=== PATIENT | male | born 1950 | race Caucasian/White ===

== ENCOUNTER → 2017-10-04 | Outpatient (CLI) | payer BC, OTHER ==
[~2017-10-04] MED LIST: ASPIR 8181 MG PO; GLUCOPHAGE1000 MG PO; HUMALOG KW200 UNIT/1 SUBQ; LISINOPRIL-HCT1 EAC2 PO; METFORMIN HCL500 MG PO; TRESIBA FL100 UNIT/1 SUBQ; TRULICITY0.75 MG/0. SUBQ; ZOCOR40 MG PO
--- NOTE | ~2017-10-04 | EKG ---
[address] [address] ELECTROCARDIOGRAM REPORT Name: ALFONZO BULLOCK Room #: REG HAI Leon#: [id number] Admission: 10/04/17 Attend Phys: Caryl Chaparro Discharge: Date of : 54 Report #: [id number] THIS REPORT FOR: //name// [facility] Test Date: 2017-10-04 Test Time: 08:33:09 Pat Name: ALFONZO BULLOCK Department: Room: Gender: M [employer]: ROMELIA CONTRERAS : 1950 Requested By: Josue Nance Order Number: [id number] MD: Measurements Intervals [place] Rate: 88 P: 69 SC: 157 QRS: 30 QRSD: 82 T: 28 QT: 380 QTc: 460 Interpretive Statements Sinus rhythm Ventricular premature complex Compared to ECG 07/06/2003 17:14:18 Ventricular premature complex(es) now present Myocardial infarct finding no longer present [email or web address] By: 0833 0833 Epiphany EpiphanyMD /EPI
--- NOTE | ~2017-10-04 | 2DMMODE ---
[facility] [address] [place] [address] 2 D/M-MODE ECHOCARDIOGRAM Name: KOBE,ALFONZO [facility] [id number] Admission: 10/04/17 Attend Phys: Caryl Chaudhari Discharge: Date of : 54 Date of Service: 10/04/17 1231 Report #: [id number] THIS REPORT FOR: //name// APPROVED REPORT Study performed: 10/04/2017 11:09:11 EXAM: Comprehensive 2D, Doppler, and color-flow Echocardiogram Patient Location: Out-Patient Status: routine BSA: 2.07 HR: 89 bpm BP: 153/103 mmHg Rhythm: NSR Other Information Study Quality: Adequate Indications Pre-Op Hx: HTN 2D Dimensions RVDd: 36.41 mm LVEF(%): 54.43 (>50%) IVSd: 13.22 (7-11mm) LVOT Diam: 20.16 (18-24mm) LVDd: 39.73 mm PWd: 14.10 (7-11mm) Ascending Ao: 35.40 (22-36mm) LVDs: 28.70 (25-40mm) Aortic Root: 32.72 mm IVC: 21.00 mm TAPSE: 1.80 (<1.7) Haynes's LVEF: 54.43 % Volumes Left Atrial Volume (Systole) Single Plane 4CH: 54.02 mL Single Plane 2CH: 38.28 mL LA ESV Index: 23.00 mL/m2 Aortic Valve AoV Peak Jorge.: 1.22 m/s AO Peak Gr.: 5.97 mmHg LVOT Max P.11 mmHg LVOT Max V: 0.73 m/s BRAD Vmax: 1.90 cm2 Mitral Valve [facility] [employer] [address] [place] [address] 2 D/M-MODE ECHOCARDIOGRAM Name: ALFONZO BULLOCK Room #: [facility] Toussaint.#: [id number] Admission: 10/04/17 Attend Phys: Caryl Chaudhari Discharge: Date of : 54 Date of Service: 10/04/17 1231 Report #: [id number] E/A Ratio: 0.7 MV Decel. Time: 201.63 ms MV E Max Jorge.: 0.60 m/s MV A Jorge.: 0.89 m/s MV PHT: 58.47 ms IVRT: 143.02 ms Pulmonary Valve PV Peak Jorge.: 0.77 m/s PV Peak Gr.: 2.40 mmHg Pulmonary Vein P Vein S: 0.36 m/s P Vein A: 0.24 m/s P Vein D: 0.30 m/s P Vein A Dur.: 101.5 msec P Vein S/D Ratio: 1.20 Tricuspid Valve RAP Estimate: 5.00 mmHg Left Ventricle The left ventricle is normal size. There is global hypokinesis of the left ventricle. Mild concentric left ventricular hypertrophy. Left ventricular systolic function is mildly decreased. LVEF is 45%. Grade I - abnormal relaxation pattern. Right Ventricle The right ventricle is normal size. The right ventricular systolic function is normal. Atria The left atrium size is normal. The right atrium size is normal. Aortic Valve The Aortic valve is sclerotic. Trace aortic regurgitation. There is no aortic valvular stenosis. Mitral Valve Mitral valve leaflets are mildly thickened. Trace mitral regurgitation. No evidence of mitral valve stenosis. Tricuspid Valve The tricuspid valve is normal in structure. There is no tricuspid valve regurgitation noted. Unable to assess PA pressure. Pulmonic Valve The pulmonary valve is normal in structure. There is no pulmonic [address] [address] 2 D/M-MODE ECHOCARDIOGRAM Name: SANDEE BULLOCKERN Room #: WILFREDO FIGUEROA AllysonArthurChaparrita#: [id number] Admission: 10/04/17 Attend Phys: Caryl Chaudhari Discharge: Date of : 54 Date of Service: 10/04/17 1231 Report #: [id number] valvular regurgitation. Great Vessels The aortic root is normal in size. The ascending aorta is normal in size. IVC is normal in size and collapses >50% with inspiration. Pericardium There is no pericardial effusion. <Conclusion> The left ventricle is normal size. Mild concentric left ventricular hypertrophy. There is global hypokinesis of the left ventricle. LVEF is 45%. Grade I - abnormal relaxation pattern. The Aortic valve is sclerotic. There is no aortic valvular stenosis. Trace aortic regurgitation. Trace mitral regurgitation. No evidence of mitral valve stenosis. There is no pericardial effusion. <ELECTRONICALLY SIGNED> By: Joselo Deras MD, FACC 10/04/17 1231 1231 1231 Joselo Deras MD, FACC /INF
== END ==
LOC: ULTRA 05:41
DX: Z01.818 Encounter for other preprocedural examination (principal); I25.810 Atherosclerosis of coronary artery bypass graft(s) without angina pectoris; I51.7 Cardiomegaly; G45.9 Transient cerebral ischemic attack, unspecified; I70.90 Unspecified atherosclerosis; I10 Essential (primary) hypertension; I25.10 Atherosclerotic heart disease of native coronary artery without angina pectoris

== ENCOUNTER 2017-10-11 05:29 | Inpatient (IN) | payer BC, OTHER ==
[2017-10-04 08:39] LABS: ABSOLUTE NEUTROPHILS 4.5 thou/uL (1.4-8.2); BASOPHILS 0.8 % (0.0-2.0); EOSINOPHILS 2.4 % (0.0-3.0); HEMATOCRIT 43.5 % (42.0-52.0); HEMOGLOBIN 14.8 gm/dL (14.0-18.0); LYMPHOCYTES 28.9 % (24.0-44.0); MCH 29.8 pg (26.0-34.0); MCHC 34.1 g/dL (28.0-37.0); MCV 87.5 fL (80.0-100.0); MONOCYTES 9.3 % (1.0-8.0); PLATELET COUNT 222 thou/uL (150-400); POLYS 58.6 % (36.0-66.0); RBC 4.98 mil/uL (4.50-6.00); RDW 12.8 % (10.5-14.5); URINE BILIRUBIN NEGATIVE (Negative); URINE BLOOD NEGATIVE (Negative); URINE CLARITY CLEAR; URINE COLOR YELLOW; URINE GLUCOSE-RANDOM* NEGATIVE (Negative); URINE KETONES NEGATIVE (Negative); URINE LEUKOCYTES-REFLEX NEGATIVE (Negative); URINE NITRITE-REFLEX NEGATIVE (Negative); URINE PROTEIN (DIPSTICK) NEGATIVE (Negative); URINE UROBILINOGEN 0.2 E.U./dl (0.2-1.0); WBC 7.6 thou/uL (4.0-11.0)
[2017-10-04 08:53] LABS: APTT 27.1 Seconds (24.5-32.8); PROTIME 10.5 Seconds (9.3-11.4)
[2017-10-04 08:56] LABS: ALBUMIN 4.1 g/dL (3.4-5.0); CALCIUM 9.3 mg/dL (8.5-10.1); CREATININE 1.4 mg/dL (0.7-1.3); POTASSIUM 3.6 mmol/L (3.5-5.1); TOTAL BILIRUBIN 0.8 mg/dL (<0.1-1.0); TOTAL PROTEIN 6.7 g/dL (6.4-8.2)
[2017-10-04 14:15] LABS: GLYCOHEMOGLOBIN (HGB A1C) 7.8 % (4.8-5.6)
[2017-10-11] VITALS (23 sets, daily range): BP systolic 92–165; BP diastolic 61–97
[~2017-10-11] VITALS: Ht 175.3 cm; Wt 97.0 kg
--- NOTE | ~2017-10-11 | HC ---
[facility] [place] [address] CONSULTATION Name: ALFONZO BULLOCK Room #: 236-P ADM IN M.R.#: [id number] Admission: 10/11/17 Attend Phys: Josue Nance MD Discharge: Date of : 54 Report #: [id number] THIS REPORT FOR: //name// CC: Manolo Nance DATE OF SERVICE: 10/12/2017 REQUESTING PHYSICIAN: Dr. Josue Nance CHIEF COMPLAINT: Status post CABG. HISTORY OF PRESENT ILLNESS: The patient is a 67-year-old patient known to myself after being evaluated for abnormal stress testing. He had numerous cardiovascular risk factors and a pharmacologic stress test demonstrated anterior and inferior defects and he was found to have multivessel coronary artery disease. He underwent a successful 4-vessel CABG yesterday here at [facility]. This morning he is in sinus rhythm. He was mildly hypertensive and is on a Cardene drip with systolic pressures in the 130s. He is alert, oriented, answering questions appropriately and taking a clear liquid diet. PAST MEDICAL HISTORY: Four-vessel CABG yesterday, MARISCAL to LAD, saphenous vein graft to PDA, saphenous vein graft to OM1 and OM2. Preoperative ejection fraction in the 40-45% range based on echocardiographic testing. SOCIAL HISTORY: He is a nonsmoker. FAMILY HISTORY: Positive for high blood pressure. MEDICATIONS: He is on metoprolol 25 mg p.o. b.i.d., amiodarone 400 mg p.o. b.i.d., albuterol, Atrovent, cefazolin, Cardene, famotidine and morphine p.r.n. REVIEW OF SYSTEMS: GASTROINTESTINAL: No abdominal pain or nausea. NEUROLOGIC: Denies slurred speech, numbness or weakness. HEMATOLOGIC: No anemia or bleeding disorders. ENDOCRINE: Positive hyperlipidemia. No diabetes. SKIN: No rash. GENERAL: No fevers or chills. PHYSICAL EXAMINATION:' VITAL SIGNS: Blood pressure 130/70, temperature 36.8, sinus rhythm, 90-[address] [address] CONSULTATION Name: KOBEALFONZO Room #: 236-P [facility] IN M.R.#: [id number] Admission: 10/11/17 Attend Phys: Josue Nance MD Discharge: Date of : 54 Report #: [id number] beats per minute, O2 sat on nasal cannula is 95%. GENERAL: This is a pleasant, adult male who is alert, oriented and in no apparent distress. HEENT: Eyes, EOMs are intact. No facial asymmetry. NECK: Supple. No jugular venous distention. CARDIOVASCULAR: Regular. I cannot hear a murmur or S3. LUNGS: Clear to auscultation. ABDOMEN: Nontender. EXTREMITIES: He has a clean, dry dressing on his left lower extremity. Distal extremities are warm. NEUROLOGIC: There are no focal deficits. IMAGING: Telemetry shows a sinus rhythm. LABORATORY DATA: Hemoglobin 11.0, white blood cell count is 17.4, platelet count 153,000. Chest x-ray this morning shows a right-sided pneumothorax. ASSESSMENT AND PLAN: 1. Coronary artery disease, status post CABG. He is postoperative day #1 and hemodynamically stable and his pain is well controlled and he is mildly hypertensive, but this is well controlled with Cardene via IV. 2. Right-sided pneumothorax. It was noted yesterday and is persistent today. 3. Hypertension, stable. 4. Hyperlipidemia. We will continue with atorvastatin. 5. Ischemic cardiomyopathy, mild chronic LV systolic dysfunction. We will need to monitor his I's and O's closely in the ICU and in telemetry. By: 0828 0858 Joselo Deras MD, FACC /nt
--- NOTE | ~2017-10-11 | EKG ---
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1950 Requested By: Caryl Chaparro Order Number: [id number] MD: Rahul Tejeda Measurements Intervals [place] Rate: 106 P: 60 OR: 138 QRS: 67 QRSD: 92 T: -6 QT: 359 QTc: 477 Interpretive Statements Sinus tachycardia Nonspecific ST and T wave abnormality Borderline prolonged QT interval Compared to ECG 10/04/2017 08:33:09 Ventricular premature complex(es) no longer present Electronically Signed On 10-11-2017 17:51:05 CDT by Rahul Tejeda [email or web address] <ELECTRONICALLY SIGNED> By: Rahul Tejeda MD, [facility] 10/11/17 1751 1543 1543 Rahul Tejeda MD, [facility] /EPI
--- NOTE | ~2017-10-11 | O ---
[facility] [place] [address] OPERATIVE REPORT Name: ALFONZO BULLOCK Room #: 236-P ADM IN M.R.#: [id number] Admission: 10/11/17 Attend Phys: Josue Nance MD Discharge: Date of : 54 Report #: [id number] THIS REPORT FOR: //name// CC: Manolo Nance DATE OF SERVICE: 10/11/2017 PREOPERATIVE DIAGNOSES: 1. Coronary artery disease. 2. Exertional dyspnea, diabetes mellitus, insulin-dependent, moderate cardiomyopathy, ejection fraction 40%. FINAL DIAGNOSES: 1. Coronary artery disease. 2. Exertional dyspnea, diabetes mellitus, insulin-dependent, moderate cardiomyopathy, ejection fraction 40%. OPERATIVE PROCEDURE PERFORMED: Coronary artery bypass grafting x 4 with left internal mammary artery to the LAD, saphenous vein graft to PDA, saphenous vein graft sequence to OM1 and OM2. SURGEON: Josue Nance MD. SWITCHBOARD OPERATOR RECEPTIONIST: MICHAEL Castro and MICHAEL Bonner. ANESTHESIA: General. OPERATIVE INDICATIONS: The patient is a 67-year-old insulin-dependent diabetic male who has presented with symptoms of exertional dyspnea and easy fatigability. He has undergone evaluation including left heart catheterization demonstrating evidence of severe multivessel coronary artery disease. He is admitted at this time and brought to the operating room for coronary artery bypass grafting. OPERATIVE SUMMARY: The patient was brought to the operating room, placed on the OR table in supine position. After anesthesia was induced via the general endotracheal route and monitoring lines have been positioned, the patient was prepped and draped in a sterile fashion with chlorhexidine. I performed a median sternotomy incision and left internal mammary artery was harvested in standard fashion. Concomitantly, saphenous vein was harvested from left lower extremity using endoscopic techniques. I then opened the pericardium and systemically anticoagulated the patient with heparin. Cannulae were placed in ascending aorta and the right atrium. An antegrade cardioplegic cannula was positioned. Cardiopulmonary bypass was begun and then, a retrograde cardioplegic cannula was positioned. Under low flow conditions, the [facility] [address] [place] [address] OPERATIVE REPORT Name: SANDEE BULLOCKERN Room #: 236-P [facility] IN M.R.#: [id number] Admission: 10/11/17 Attend Phys: Josue Nance MD Discharge: Date of : 54 Report #: [id number] crossclamp was placed and the heart was arrested with approximately 1 liter of cold antegrade cardioplegia, followed by 500 mL of cold retrograde cardioplegia. This was augmented with topical ice slush. Diastolic arrest was achieved and maintained throughout this operation with intermittent doses of cold antegrade and retrograde cardioplegia as well as cardioplegia given down grafts and topical ice slush. We first opened up second obtuse marginal vessel. It was about a 1.9 mm vessel, minimal calcification. At this point, distal anastomosis was carried out in end-to-side fashion with 7-0 Prolene. We then constructed another distal anastomosis this time to the first obtuse marginal. This was done in a [id number] fashion after an arteriotomy was made. This anastomosis was also performed with 7-0 Prolene. The saphenous vein graft segment was brought around to the ascending aorta and measured and cut to the appropriate length and then proximal fashion with 6-0 Prolene after a 4.8 punch aortotomy was created. Next, we opened the posterior descending coronary artery. This was the more modest-sized vessel 1.7 mm in size and it had some calcification present. The distal anastomosis was carried out in end-to-side fashion with 7-0 Prolene utilizing reverse saphenous vein graft and the proximal fashion ascending aorta with 6-0 Prolene after a 4.8 punch aortotomy was created. Lastly, the WINNIE was brought brought onto the field. The WINNIE was cut to the appropriate length. It was of good size and had excellent flow. The LAD was a terrible target. We were unable to find a soft spot on this artery for grafting. We did manage to find a small area in the mid aspect of the vessel. We opened it and fashioned the anastomosis utilizing a MARISCAL to the LAD with 7-0 Prolene. After completion, a couple of reinforcement sutures were placed. The pedicle was tacked to the epicardium with 6-0 Prolene and some BioGlue was used also to ensure hemostasis. We then gave warm cardioplegia both retrograde and antegrade. We de-aired the ascending aorta and the vein grafts with a 27 gauge needle and under low flow conditions, the aorta crossclamp was released to begin the period of reperfusion. The patient was rewarmed to 37 degree centigrade and 3 successive doses of calcium and a single dose of magnesium were given every 3-5 minute intervals. After a suitable period of reperfusion, the lungs were reinflated. The patient was weaned from cardiopulmonary bypass on a low dose Dobutrex infusion. Protamine was given to reverse the heparin, decannulation was effected. Once satisfactory hemostasis was achieved, we placed two 32-[place] chest tubes in the anterior mediastinum and a 24 Mayank drain in left pleural space. They were all brought out through separate stab incisions. The sternum was closed with #7 wire. The fascia, subcutaneous and skin were closed in multiple layers with absorbable suture. The procedure was completed. The patient was taken to the ICU in stable condition. By: 1452 1524 /nt
--- NOTE | ~2017-10-11 | EKG ---
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
--- NOTE | ~2017-10-11 | P ---
[facility] [place] [address] PROCEDURE REPORT Name: ALFONZO BULLOCK Room #: 236-P [facility] IN M.R.#: [id number] Admission: 10/11/17 Attend Phys: Josue Nance MD Discharge: Date of : 54 Report #: [id number] THIS REPORT FOR: //name// CC: Manolo Nance DATE OF SERVICE: 10/12/2017 PROCEDURE: Right chest tube placement. INDICATION: Pneumothorax and respiratory failure. PROCEDURE NOTATION: I was called emergently by Thoracic Surgery Service to come evaluate the patient, place right chest tube. There is no other service available to perform procedure. The patient had a right pneumothorax apparently noted overnight with worsening hypoxemia today, postoperative from coronary bypass grafting. The patient gave verbal consent, somewhat somnolent. Right side was cleansed with 2% chlorhexidine gluconate. Optimal site was determined prior to cleansing. Once complete, using maximal barrier method including head gown, mask, gloves and sterile towels to create a sterile field, the patient then received 8 mL of 1% lidocaine with epinephrine for topical anesthesia and hemostasis controlled at the site of incision. Additional 15 mL of 1% lidocaine were infused along planned pleural puncture site and tunnel tract for chest tube. The patient had received conscious sedation during the procedure. A total of 2 mg of lorazepam, 6 mg of Ativan were titrated during the procedure to provide adequate sedation and analgesia. Once complete, the incision was made about 4 cm below the planned pleural puncture site. Using the curved Amy clamps, a blunt dissection was performed to tunnel about 4 cm to the planned pleural puncture site. Once complete, the large curved Kellys were then used to puncture in the anterior axillary line, roughly the fourth interspace above the rib. Pleural air was noted. Finger was then inserted in the pleural space and palpated the lung, which was freely moving away from the chest wall. A 28-[place] chest tube was then inserted, aiming posteriorly and superiorly without difficulty. Air and serosanguineous fluid was then drained, hooked at the . This was sutured in place using 0 silk and modified pursestring technique. This was then dressed. The patient tolerated well. No noted complications. Saturations initially improved to 94% with this maneuver and then addition of BiPAP. It was then connected to 20 cm of suction. Chest x-ray pending at the time of dictation. By: 1022 1147 Navdeep Morales MD /estrella
[2017-10-11 13:13] LABS: HEMATOCRIT 26.6 % (42.0-52.0); MCH 29.6 pg (26.0-34.0); MCHC 33.7 g/dL (28.0-37.0); MCV 87.9 fL (80.0-100.0); RBC 3.02 mil/uL (4.50-6.00); WBC 12.5 thou/uL (4.0-11.0)
[2017-10-11 13:16] LABS: HEMOGLOBIN 8.9 gm/dL (14.0-18.0)
[2017-10-11 13:39] LABS: FIBRINOGEN 137.6 mg/dL (210-360); INR 1.5
[2017-10-11 13:57] LABS: POC BE 2 mmol/L (-2.0 to +3.0); POC CA IONIZED 4.4 mg/dL (4.5-5.3); POC GLUCOSE 125 mg/dL (70-99); POC HCO3 27.5 mmol/L (22.0-26.0); POC HEMOGLOBIN 11.6 g/dL (14.0-18.0); POC SODIUM 139 mmol/L (136-145); POC pCO2 47.8 mmHg (35.0-45.0); POC pH 7.369 (7.360-7.450)
[2017-10-11 13:57] LABS: POC BE 5 mmol/L (-2.0 to +3.0); POC GLUCOSE 167 mg/dL (70-99); POC HCO3 28.8 mmol/L (22.0-26.0); POC HEMOGLOBIN 8.8 g/dL (14.0-18.0); POC POTASSIUM 5.4 mmol/L (3.5-5.1); POC SODIUM 134 mmol/L (136-145); POC pCO2 42.1 mmHg (35.0-45.0); POC pH 7.443 (7.360-7.450)
[2017-10-11 13:57] LABS: POC BE 5 mmol/L (-2.0 to +3.0); POC CA IONIZED 4.1 mg/dL (4.5-5.3); POC GLUCOSE 149 mg/dL (70-99); POC HCO3 28.5 mmol/L (22.0-26.0); POC HEMOGLOBIN 9.5 g/dL (14.0-18.0); POC POTASSIUM 4.7 mmol/L (3.5-5.1); POC SODIUM 137 mmol/L (136-145); POC pCO2 38.8 mmHg (35.0-45.0); POC pH 7.474 (7.360-7.450)
[2017-10-11 13:57] LABS: POC BE 7 mmol/L (-2.0 to +3.0); POC CA IONIZED 3.8 mg/dL (4.5-5.3); POC GLUCOSE 127 mg/dL (70-99); POC HCO3 30.4 mmol/L (22.0-26.0); POC HEMOGLOBIN 9.2 g/dL (14.0-18.0); POC POTASSIUM 4.7 mmol/L (3.5-5.1); POC SODIUM 137 mmol/L (136-145); POC pCO2 42.2 mmHg (35.0-45.0); POC pH 7.466 (7.360-7.450)
[2017-10-11 13:57] LABS: POC BE 2 mmol/L (-2.0 to +3.0); POC CA IONIZED 3.9 mg/dL (4.5-5.3); POC GLUCOSE 124 mg/dL (70-99); POC HCO3 26.1 mmol/L (22.0-26.0); POC HEMOGLOBIN 9.2 g/dL (14.0-18.0); POC POTASSIUM 4.6 mmol/L (3.5-5.1); POC SODIUM 137 mmol/L (136-145); POC pCO2 40.8 mmHg (35.0-45.0); POC pH 7.414 (7.360-7.450)
[2017-10-11 13:57] LABS: POC BE 2 mmol/L (-2.0 to +3.0); POC CA IONIZED 4.3 mg/dL (4.5-5.3); POC GLUCOSE 126 mg/dL (70-99); POC HCO3 25.5 mmol/L (22.0-26.0); POC HEMOGLOBIN 12.9 g/dL (14.0-18.0); POC POTASSIUM 3.6 mmol/L (3.5-5.1); POC SODIUM 138 mmol/L (136-145); POC pCO2 34.6 mmHg (35.0-45.0); POC pH 7.475 (7.360-7.450)
[2017-10-11 13:57] LABS: POC BE 5 mmol/L (-2.0 to +3.0); POC CA IONIZED 4.1 mg/dL (4.5-5.3); POC GLUCOSE 191 mg/dL (70-99); POC HCO3 29.5 mmol/L (22.0-26.0); POC HEMOGLOBIN 8.8 g/dL (14.0-18.0); POC POTASSIUM 5.5 mmol/L (3.5-5.1); POC SODIUM 135 mmol/L (136-145); POC pCO2 47.6 mmHg (35.0-45.0)
[2017-10-11 13:58] LABS: POC BE 5 mmol/L (-2.0 to +3.0); POC CA IONIZED 6.8 mg/dL (4.5-5.3); POC GLUCOSE 174 mg/dL (70-99); POC HCO3 30.2 mmol/L (22.0-26.0); POC HEMOGLOBIN 8.8 g/dL (14.0-18.0); POC POTASSIUM 5.3 mmol/L (3.5-5.1); POC SODIUM 134 mmol/L (136-145); POC pCO2 54.2 mmHg (35.0-45.0); POC pH 7.353 (7.360-7.450)
[2017-10-11 14:03] LABS: POC BE 0 mmol/L (-2.0 to +3.0); POC CA IONIZED 6.1 mg/dL (4.5-5.3); POC GLUCOSE 140 mg/dL (70-99); POC HCO3 24.7 mmol/L (22.0-26.0); POC HEMOGLOBIN 10.2 g/dL (14.0-18.0); POC POTASSIUM 4.3 mmol/L (3.5-5.1); POC SODIUM 138 mmol/L (136-145); POC pH 7.378 (7.360-7.450)
[2017-10-11 14:03] LABS: POC BE 1 mmol/L (-2.0 to +3.0); POC CA IONIZED 7.3 mg/dL (4.5-5.3); POC GLUCOSE 158 mg/dL (70-99); POC HCO3 26.2 mmol/L (22.0-26.0); POC HEMOGLOBIN 8.5 g/dL (14.0-18.0); POC POTASSIUM 4.5 mmol/L (3.5-5.1); POC SODIUM 136 mmol/L (136-145); POC pCO2 46.2 mmHg (35.0-45.0); POC pH 7.362 (7.360-7.450)
[2017-10-11 15:33] LABS: BE(vivo) -3.4 mmol/L (-2 to +3); HCO3 21.2 mmol/L (22.0-26.0); PCO2 36.6 mmHg (35.0-45.0); sO2 88.7 % (92.0-98.0)
[2017-10-11 15:35] LABS: PO2 55.7 mmHg (80.0-100.0)
[2017-10-11 16:41] LABS: HEMATOCRIT 37.8 % (42.0-52.0); MCH 29.7 pg (26.0-34.0); MCHC 33.9 g/dL (28.0-37.0); MCV 87.8 fL (80.0-100.0); RBC 4.3 mil/uL (4.50-6.00); RDW 13.5 % (10.5-14.5); WBC 23.1 thou/uL (4.0-11.0)
[2017-10-11 16:42] LABS: HEMOGLOBIN 12.8 gm/dL (14.0-18.0)
[2017-10-11 16:59] LABS: CREATININE 1.8 mg/dL (0.7-1.3); POTASSIUM 4.1 mmol/L (3.5-5.1)
[2017-10-11 17:01] LABS: APTT 25.9 Seconds (24.5-32.8); INR 1.1; PROTIME 11.2 Seconds (9.3-11.4)
[2017-10-11 19:34] LABS: BE(vivo) -4.3 mmol/L (-2 to +3); HCO3 20.5 mmol/L (22.0-26.0); PCO2 37.1 mmHg (35.0-45.0); PO2 60.8 mmHg (80.0-100.0); pH 7.361 (7.360-7.450); sO2 90.6 % (92.0-98.0)
[2017-10-11 20:05] LABS: HCO3 20.5 mmol/L (22.0-26.0); PCO2 39.6 mmHg (35.0-45.0); PO2 58.2 mmHg (80.0-100.0); pH 7.332 (7.360-7.450); sO2 88.6 % (92.0-98.0)
[2017-10-11 21:04] LABS: BE(vivo) -3.9 mmol/L (-2 to +3); PCO2 37.4 mmHg (35.0-45.0); PO2 61.8 mmHg (80.0-100.0); pH 7.367 (7.360-7.450); sO2 91.2 % (92.0-98.0)
[2017-10-12] VITALS (168 sets, daily range): BP systolic 88–140; BP diastolic 62–103
[2017-10-12 05:17] LABS: HEMATOCRIT 32.7 % (42.0-52.0); MCH 29.8 pg (26.0-34.0); MCHC 33.5 g/dL (28.0-37.0); MCV 88.8 fL (80.0-100.0); RBC 3.68 mil/uL (4.50-6.00); RDW 13.2 % (10.5-14.5); WBC 17.4 thou/uL (4.0-11.0)
[2017-10-12 05:23] LABS: CALCIUM 8.9 mg/dL (8.5-10.1); CREATININE 1.6 mg/dL (0.7-1.3); MAGNESIUM 1.9 mg/dL (1.8-2.4); POTASSIUM 4.2 mmol/L (3.5-5.1)
[2017-10-12 07:39] LABS: BE(vivo) -1.5 mmol/L (-2 to +3); HCO3 23.9 mmol/L (22.0-26.0); PCO2 43.1 mmHg (35.0-45.0); PO2 63.5 mmHg (80.0-100.0); pH 7.362 (7.360-7.450); sO2 91.5 % (92.0-98.0)
[2017-10-12 11:26] LABS: BE(vivo) -2.4 mmol/L (-2 to +3); HCO3 22.7 mmol/L (22.0-26.0); PCO2 40.5 mmHg (35.0-45.0); PO2 98.5 mmHg (80.0-100.0); pH 7.367 (7.360-7.450); sO2 97.3 % (92.0-98.0)
[2017-10-13] VITALS (26 sets, daily range): BP systolic 108–144; BP diastolic 75–93
[2017-10-13 05:44] LABS: HEMOGLOBIN 10.4 gm/dL (14.0-18.0); MCHC 33.5 g/dL (28.0-37.0); MCV 89.6 fL (80.0-100.0); RBC 3.46 mil/uL (4.50-6.00); RDW 13.7 % (10.5-14.5); WBC 18.7 thou/uL (4.0-11.0)
[2017-10-13 05:48] LABS: CALCIUM 8.5 mg/dL (8.5-10.1); CREATININE 1.4 mg/dL (0.7-1.3); POTASSIUM 4.3 mmol/L (3.5-5.1)
[2017-10-14] VITALS (9 sets, daily range): BP systolic 115–146; BP diastolic 73–99
[2017-10-15 00:13] VITALS: BP 118/83
[2017-10-15 04:04] LABS: HEMATOCRIT 26.8 % (42.0-52.0); HEMOGLOBIN 9.1 gm/dL (14.0-18.0); MCH 30.5 pg (26.0-34.0); MCHC 34.1 g/dL (28.0-37.0); MCV 89.6 fL (80.0-100.0); RBC 2.99 mil/uL (4.50-6.00); RDW 13.8 % (10.5-14.5); WBC 10.5 thou/uL (4.0-11.0)
[2017-10-15 04:12] LABS: CREATININE 1.6 mg/dL (0.7-1.3); POTASSIUM 4.2 mmol/L (3.5-5.1)
[2017-10-15 04:48] VITALS: BP 123/84
[2017-10-15 07:40] VITALS: BP 139/87
[2017-10-15 11:30] VITALS: BP 113/72
[2017-10-15 15:35] VITALS: BP 121/78
[2017-10-15 19:13] VITALS: BP 125/59
[2017-10-16 03:10] LABS: BASOPHILS 0.7 % (0.0-2.0); EOSINOPHILS 1.1 % (0.0-3.0); HEMATOCRIT 29.5 % (42.0-52.0); HEMOGLOBIN 9.9 gm/dL (14.0-18.0); LYMPHOCYTES 14.4 % (24.0-44.0); MCH 29.9 pg (26.0-34.0); MCHC 33.4 g/dL (28.0-37.0); MCV 89.6 fL (80.0-100.0); MONOCYTES 9.5 % (1.0-8.0); PLATELET COUNT 193 thou/uL (150-400); POLYS 74.3 % (36.0-66.0); RDW 13.6 % (10.5-14.5); WBC 10.8 thou/uL (4.0-11.0)
[2017-10-16 03:23] LABS: CALCIUM 8.2 mg/dL (8.5-10.1); CREATININE 1.5 mg/dL (0.7-1.3); POTASSIUM 3.7 mmol/L (3.5-5.1)
[2017-10-16 04:54] VITALS: BP 129/75
[2017-10-16 08:20] VITALS: BP 130/78
[2017-10-16 12:00] VITALS: BP 134/82
[2017-10-16 15:20] VITALS: BP 134/82
[2017-10-16 19:59] VITALS: BP 127/68
[2017-10-17 05:08] VITALS: BP 135/74
[2017-10-17 07:52] VITALS: BP 138/82
[2017-10-17 11:19] VITALS: BP 136/85
[2017-10-17] MEDS ORDERED: NORCO 5-325 TA1 EACH PO (11:29)
[2017-10-17] MEDS ORDERED: FERREX 150 PLU1 EAC1 PO (11:34)
[2017-10-17] MEDS ORDERED: COREG3.125 MG PO (11:34)
[2017-10-17] MEDS ORDERED: HOME MEDICATION SUBQ (11:34)
[2017-10-17] MEDS ORDERED: ASPIRIN EC325 M1 PO (11:34)
[2017-10-17] MEDS ORDERED: METFORMIN HCL500 MG PO (11:34)
[2017-10-17 12:12] VITALS: BP 136/85
== END 2017-10-17 13:00 | disposition home or self-care (01) | DRG 235 ==
LOC: TBA 05:29 → PRE 05:32 → ICU 14:26 → PRE 16:52 → 2N 10-14 14:07 → ENTRNSPT 10-17 12:49 → EDTRNSPTSTS 10-17 12:53 → 2N 10-17 13:00
PROVIDERS: Hospitalist; Nurse Practitioner; Thoracic Surgery (Cardiothoracic Vascular Surgery)
DX: I25.119 Atherosclerotic heart disease of native coronary artery with unspecified angina pectoris (principal); J96.01 Acute respiratory failure with hypoxia; J93.9 Pneumothorax, unspecified; D62 Acute posthemorrhagic anemia; E78.5 Hyperlipidemia, unspecified; I25.5 Ischemic cardiomyopathy; N18.9 Chronic kidney disease, unspecified; I12.9 Hypertensive chronic kidney disease with stage 1 through stage 4 chronic kidney disease, or unspecified chronic kidney disease; E11.22 Type 2 diabetes mellitus with diabetic chronic kidney disease; E11.65 Type 2 diabetes mellitus with hyperglycemia; D72.829 Elevated white blood cell count, unspecified; Z23 Encounter for immunization
CPT/HCPCS: 10078; 10081; 47000; 47001; 47002; 48888; 50010; 50318; 62110; 62950; 83006

== ENCOUNTER → 2017-10-31 | Outpatient (CLI) | payer BC, OTHER ==
[~2017-10-31] MED LIST changes: +ASPIRIN EC325 M1 PO; +COREG3.125 MG PO; +FERREX 150 PLU1 EAC1 PO; +HOME MEDICATION SUBQ; +NORCO 5-325 TA1 EACH PO
== END ==
LOC: RAD 10-27 16:08
DX: J90 Pleural effusion, not elsewhere classified (principal); Z95.1 Presence of aortocoronary bypass graft